=== PATIENT | female | born 1995 | race Caucasian/White ===

== ENCOUNTER 2024-03-18 01:21 | Observation (INO) ==
--- NOTE | 2024-03-18 01:35 | Emergency Department Note ---
Impression & Plan Sepsis, Left lower lobe pneumonia, Leukocytosis, Hypomagnesemia, Acute hypokalemia, Fever ED Provider Note HISTORY OF PRESENT ILLNESS: Patient is a 28-year-old female presenting with anxiety. Patient reports that this evening she had an episode of vomiting which triggered her to have a panic attack. Reports that she is normally on citalopram and has not missed any doses of this medication. States that sometimes when she vomits it triggers her panic attacks. Her panic attack was not subsiding, so her family called 911. Patient is 2 months . She does feel slightly better on arrival to the emergency department after being administered 0.5 mg of IV Ativan by EMS. Patient denies any chest pain or significant shortness of breath. She does report she had a nonproductive cough for the last 4 days. Denies any fevers. Denies any nausea or vomiting on arrival to the emergency department. Denies any abdominal pain. Patient reports numerous stressors at home, including a and her being deployed. ROS: as above PHYSICAL EXAM: Constitutional: Patient appears in no acute distress. HENT: Head: Normocephalic and atraumatic. Eyes: EOMI, PERRL Mouth/Throat: Mucous membranes moist. Neck: Trachea midline. Neck supple. Cardiovascular: Tachycardic with regular rhythm. No murmurs, rubs or gallops. Intact distal pulses. Pulmonary/Chest: No respiratory distress. Breath sounds clear and equal bilaterally. No wheezes or rales. Abdominal: Abdomen soft, no tenderness, rebound or guarding. Musculoskeletal: No edema, tenderness or deformity noted. Skin: Warm and dry. No rash, erythema, pallor or cyanosis Psychiatric: Appropriate mood and affect for situation. Neurological: Alert and keenly responsive. CN II-XII grossly intact, moving all extremities equally and fully. MDM: - Vitals signs showed tachycardia and fever. 1g IV tylenol ordered - History obtained via patient. History as above. - Chronic conditions affecting care: Anxiety/depression - Differential diagnoses include, but are not limited to: ACS; pulmonary embolism; pneumonia; viral syndrome; panic attack; dehydration; electrolyte abnormality - Order placed for continuous cardiac monitoring. At this time, monitor showed rate of 117 bpm with normal sinus rhythm, per my interpretation. - External medical records reviewed. EMS run sheet from today was reviewed. Patient was tachycardic and route. She is given 0.5 mg of IV Ativan prehospital - EKG interpreted by myself showed normal sinus rhythm. Rate tachycardic at 115 bpm. QT 324. No acute ischemic changes. - Laboratory workup interpreted by myself showed leukocytosis (WBC 12.87) with left shift; normal PT/INR; elevated D dimer; hypokalemia (K 3.2); hypomagnesemia (Mg 1.3); normal troponin; normal lipase; negative hCG; negative salicylate/acetaminophen levels - CXR negative for obvious pneumonia, per my interpretation - Viral respiratory panel negative - VBG negative - Patient did become hypoxic while in the emergency department and was started on 2 L NC. D-dimer elevated. CT PE ordered. - CT PE negative for PE. However, noted to have a left lower lobe pneumonia. - Patient given 2L NS for fluid resuscitation. Patient sepsis fluid volume resuscitation based on ideal body weight is 1636.20 mL. - Blood cultures obtained - Given 1g IV magnesium and 40 mEq IV potassium for electrolyte replacement. - Given IV zosyn for antibiotic coverage. - Discussion was had with case work aide about patient's case and need for admission - Hospitalist, Dr. Rouse, consulted for admission - Patient admitted to [facility] for further evaluation and management. ASSESSMENT AND PLAN: Diagnosis: Sepsis; hypomagnesemia; acute hypokalemia; leukocytosis; left lower lobe pneumonia; fever Plan: admit Past Med/Surg History Problem List (Updated 03/18/24 @ 04:15 by Destiny Whitaker MD) Fever (Acute) Acute hypokalemia (Acute) Hypomagnesemia (Acute) Leukocytosis (Acute) Left lower lobe pneumonia (Acute) Sepsis (Acute) Fear of flying Depression with anxiety Vitamin D deficiency Acne Menorrhagia Medical History Depression with anxiety Fear of flying Family History Mother Irritable bowel syndrome (IBS) Father Allergic rhinitis Other Family history non-contributory Denies family history of Ovarian cancer Prostate cancer Myocardial infarction Breast cancer Colorectal cancer Social History Smoking Status: Never smoker Hx Alcohol Use: No Hx Substance Use: No Preferred Language: Argentine Visual Impairment: No Limitations Hearing Ability: Normal marital status: Current Living Situation: Spouse current occupational status: employed current occupation: chartered accountant [employer] Feels Safe at Home: Yes Childhood Exposure to Second-Hand Smoke: Yes Dental Care, Regularly: Yes Physical Activity Frequency: Daily Seatbelt Use: always Sunscreen Use: Yes Allergies Allergies Allergy/AdvReac Type Severity Reaction Status Date / Time No Known Drug Allergies Allergy Unknown Verified 03/18/24 02:11 Home Meds Home Medications Medication Instructions Recorded Confirmed No Known Home Medications 03/18/24 03/18/24 Results & Data (ED) Vital Signs Vital Signs - 24 hr 03/18/24 01:28 03/18/24 01:35 03/18/24 01:44 Temperature 38.2 C H Temperature Source Oral Pulse Rate 119 H 120 H Pulse Rate [Apical] Pulse Rhythm [Apical] Pulse Strength [Apical] Respiratory Rate 22 Respiratory Effort / Characteristics Respiratory Depth Respiratory Pattern Blood Pressure 138/79 Blood Pressure [Right Arm] Blood Pressure Mean 98 Blood Pressure Mean [Right Arm] Blood Pressure Position [Right Arm] Pulse Oximetry 98 Oxygen Delivery Method Room Air Room Air Oxygen Flow Rate Fraction of Inspired Oxygen Sepsis Recent Fever Within 48 Hours Yes Sepsis New/Unexplained Change in Mental Status No Sepsis Action Taken by Nursing Physician Notified Pulse Oximetry Post Tiitration 03/18/24 01:44 03/18/24 02:06 03/18/24 02:09 Temperature Temperature Source Pulse Rate 120 H Pulse Rate [Apical] Pulse Rhythm [Apical] Pulse Strength [Apical] Respiratory Rate Respiratory Effort / Characteristics Respiratory Depth Respiratory Pattern Blood Pressure Blood Pressure [Right Arm] Blood Pressure Mean Blood Pressure Mean [Right Arm] Blood Pressure Position [Right Arm] Pulse Oximetry 98 86 L Oxygen Delivery Method Room Air Room Air Nasal Cannula Oxygen Flow Rate 2 Fraction of Inspired Oxygen 85 Sepsis Recent Fever Within 48 Hours Sepsis New/Unexplained Change in Mental Status Sepsis Action Taken by Nursing Pulse Oximetry Post Tiitration 97 03/18/24 02:42 03/18/24 04:11 Temperature 39.3 C H 38.4 C H Temperature Source Oral Oral Pulse Rate Pulse Rate [Apical] 115 H 106 H Pulse Rhythm [Apical] Regular Regular Pulse Strength [Apical] Normal Respiratory Rate 20 18 Respiratory Effort / Characteristics Non-Labored Non-Labored Spontaneous Respiratory Depth Normal Respiratory Pattern Regular Blood Pressure Blood Pressure [Right Arm] 138/79 122/74 Blood Pressure Mean Blood Pressure Mean [Right Arm] 98 90 Blood Pressure Position [Right Arm] Lying Pulse Oximetry 99 97 Oxygen Delivery Method Nasal Cannula Room Air Oxygen Flow Rate 2 Fraction of Inspired Oxygen Sepsis Recent Fever Within 48 Hours Sepsis New/Unexplained Change in Mental Status Sepsis Action Taken by Nursing Pulse Oximetry Post Tiitration Laboratory Data 03/18/24 01:35 03/18/24 01:35 Lab Results 03/18/24 03/18/24 03/18/24 Range/Units 01:30 01:35 02:28 WBC 12.87 H (4.8-10.8) K/ul RBC 4.75 (4.20-5.40) M/uL Hgb 13.0 (12.0-16.0) g/dl Hct 38.1 (37.0-47.0) % MCV 80.2 (80.0-100.0) fL MCH 27.4 (25.0-34.0) pg MCHC 34.1 (32.0-36.0) g/dL RDW Std Deviation 39.1 (36.4-46.3) fL RDW Coeff of Vinh 13.4 (11.5-14.5) % Plt Count 275 (130-400) K/uL MPV 9.7 (9.4-12.4) fL Immature Gran % (Auto) 0.4 % Neut % (Auto) 79.7 % Lymph % (Auto) 14.8 % [place] % (Auto) 4.6 % Eos % (Auto) 0.3 % Baso % (Auto) 0.2 % Neut # (Auto) 10.27 H (1.40-6.50) K/uL Lymph # (Auto) 1.90 (1.20-3.40) K/uL [place] # (Auto) 0.59 (0.11-0.59) K/uL Eos # (Auto) 0.04 (0.00-0.50) K/uL Baso # (Auto) 0.02 (0.00-0.20) K/uL Immature Gran # (Auto) 0.05 (0.01-0.20) K/uL PT 11.1 (9.0-12.0) Seconds INR 1.0 (0.9-1.1) D-Dimer 590 H* (0-500) ug/L FEU VBG pH 7.40 (7.36-7.41) VBG pCO2 40 (38-50) mmHg VBG pO2 49 mmHg VBG HCO3 25 mmol/L VBG O2 Saturation 83.2 % VBG Base Excess 0 mEq/L Sodium 137 (136-145) mmol/L Potassium 3.2 L (3.5-5.1) mmol/L Chloride 102 (98-107) mmol/L Carbon Dioxide 25 (21-32) mmol/L Anion Gap 10 (3-11) BUN 10 (6-23) mg/dl Creatinine 0.74 (0.6-1.2) mg/dl Est Cr Clr Drug Dosing 96.0 ml/min Est GFR ( Amer) 126.0 ml/min Est GFR (Non-Af Amer) 108.7 ml/min BUN/Creatinine Ratio 13.5 (10-20) Glucose 107 H (70-99(Fasting)) mg/dl Calcium 9.6 (8.6-10.3) mg/dl Magnesium 1.3 L (1.7-2.4) mg/dl Total Bilirubin 0.7 (0.2-1.0) mg/dl AST 19 (13-39) U/L ALT 21 (7-52) U/L Alkaline Phosphatase 83 (34-104) U/L Troponin I High Sens 3.3 (0-14) pg/ml Total Protein 7.6 (6.0-8.3) gm/dl Albumin 4.6 (3.4-5.0) gm/dl Globulin 3.0 (2.5-4.0) gm/dl Albumin/Globulin Ratio 1.5 (0.9-2) Lipase 43 (11-82) U/L HCG, Qual Negative (Negative) Salicylates < 3.0 L (3.0-30) mg/dl Acetaminophen < 3 L (10-30) ug/ml Adenovirus (PCR) Not Detected (NotDetected) B. pertussis DNA (PCR) Not Detected (NotDetected) B.parapertussis DNA PCR Not Detected (NotDetected) C. pneumoniae DNA (PCR) Not Detected (NotDetected) Coronavirus OC43 (PCR) Not Detected (NotDetected) Coronavirus HKU1 (PCR) Not Detected (NotDetected) Coronavirus 229E (PCR) Not Detected (NotDetected) SARS-CoV-2 (PCR) Not Detected (NotDetected) Coronavirus NL63 (PCR) Not Detected (NotDetected) Human Metapneumovir PCR Not Detected (NotDetected) Influenza Type A (PCR) Not Detected (NotDetected) Influenza Type B (PCR) Not Detected (NotDetected) M. pneumoniae (PCR) Not Detected (NotDetected) Parainfluenza 1 (PCR) Not Detected (NotDetected) Parainfluenza 2 (PCR) Not Detected (NotDetected) Parainfluenza 3 (PCR) Not Detected (NotDetected) Parainfluenza 4 (PCR) Not Detected (NotDetected) RSV (PCR) Not Detected (NotDetected) Entero/Rhino (PCR) Not Detected (NotDetected) Administered Medications Discontinued Medications Acetaminophen (Ofirmev) 1,000 mg in 100 mls @ 400 mls/hr IV NOW STA Stop: 03/18/24 01:57 Last Infusion: 03/18/24 02:44 Dose: Infused Documented By: Admin: 03/18/24 01:55 Dose: 400 mls/hr Documented By: GAIL Magnesium Sulfate/Dextrose (Magnesium Sulfate / D5w) 1 gm in 100 mls @ 100 mls/hr IV NOW STA Stop: 03/18/24 03:09 Last Admin: 03/18/24 02:48 Dose: 100 mls/hr Documented By: GAIL Sodium Chloride (Nss) 1,000 mls @ 999 mls/hr IV .Q1H1M ONE Stop: 03/18/24 03:11 Last Infusion: 03/18/24 03:48 Dose: Infused Documented By: Admin: 03/18/24 02:48 Dose: 999 mls/hr Documented By: GAIL Ioversol (Optiray 320 125ml) 125 ml IV ONCE ONE Stop: 03/18/24 03:29 Last Admin: 03/18/24 03:28 Dose: 117 ml Documented By: CON Ketorolac Tromethamine (Ketorolac 30 Mg/Ml Vial) 30 mg IV NOW ONE Stop: 03/18/24 02:46 Last Admin: 03/18/24 02:53 Dose: 30 mg Documented By: GAIL Imaging Data Radiologist's Impression: Chest CTA 03/18/24 02:19 Exam(s): CTA CHEST IV Amt: 117 ML OPTIRAY 320 EXAM: CT Angiography Chest With Intravenous Contrast CLINICAL HISTORY: PE. TECHNIQUE: Axial computed tomographic angiography images of the chest with intravenous contrast. MIPS images were created and reviewed. CTDI is 11 mGy and DLP is 331 mGy-cm. Automated exposure control was utilized for the study. A dose lowering technique was utilized adhering to the principles of ALARA. MIP reconstructed images were created and reviewed. COMPARISON: No relevant prior studies available. FINDINGS: Pulmonary arteries: Unremarkable. No pulmonary embolus. Aorta: No acute findings. No thoracic aortic aneurysm. Lungs: Left lower lobe pneumonia. No mass. Pleural space: Unremarkable. No significant effusion. No pneumothorax. Heart: Unremarkable. No cardiomegaly. No significant pericardial effusion. No evidence of RV dysfunction. Bones/joints: There are degenerative changes of the spine. No acute fracture. No dislocation. Soft tissues: Unremarkable. Lymph nodes: Unremarkable. No enlarged lymph nodes. IMPRESSION: 1. No pulmonary embolus. 2. Left lower lobe pneumonia. Electronically signed by: Tigist Wesley MD 03/18/24 03:37 AM Discharge Plan Visit Data Chief Complaint: Anxiety Stated Complaint: PANIC ATTACK ED Provider: Destiny Whitaker Discharge Problem: Sepsis, Left lower lobe pneumonia, Leukocytosis, Hypomagnesemia, Acute hypokalemia, Fever Forms Stand Alone Forms: [employer] [facility] [employer], Suicide Prevention Resources Prescriptions Prescriptions: No Action No Known Home Medications Referrals Referrals: MOVED, AWAY [Other]
[2024-03-18 01:49] LABS: Basophils # (auto) 0.02 K/uL (0.00-0.20); Basophils % (auto) 0.2 %; Eosinophils # (auto) 0.04 K/uL (0.00-0.50); Eosinophils % (auto) 0.3 %; Hematocrit (blood only) 38.1 % (37.0-47.0); Immature Granulocytes # (auto) 0.05 K/uL (0.01-0.20); Immature Granulocytes % (auto) 0.4 %; Lymphocytes % (auto) 14.8 %; Mean Corpuscular Hemoglobin 27.4 pg (25.0-34.0); Mean Corpuscular Hgb Conc 34.1 g/dL (32.0-36.0); Mean Corpuscular Volume 80.2 fL (80.0-100.0); Mean Platelet Volume 9.7 fL (9.4-12.4); Monocytes # (auto) 0.59 K/uL (0.11-0.59); Monocytes % (auto) 4.6 %; Neutrophils # (auto) 10.27 K/uL (1.40-6.50); Neutrophils % (auto) 79.7 %; Platelet Count 275 K/uL (130-400); RDW Coefficient of Variation 13.4 % (11.5-14.5); RDW Standard Deviation 39.1 fL (36.4-46.3); Red Blood Count 4.75 M/uL (4.20-5.40); White Blood Count 12.87 K/ul (4.8-10.8)
[2024-03-18] MEDS: ACETAMINOPHEN 1,000 MG/100 ML VIAL IV STA (01:55)
[2024-03-18 02:04] LABS: Albumin Level 4.6 gm/dl (3.4-5.0); Bilirubin,Total 0.7 mg/dl (0.2-1.0); Calcium 9.6 mg/dl (8.6-10.3); Magnesium 1.3 mg/dl (1.7-2.4); Potassium 3.2 mmol/L (3.5-5.1); Prothrombin Time 11.1 Seconds (9.0-12.0)
[2024-03-18 02:10] LABS: Albumin Globulin Ratio 1.5 (0.9-2); BUN Creatinine Ratio 13.5 (10-20); Est GFR (Non-African American) 108.7 ml/min; Total Protein 7.6 gm/dl (6.0-8.3)
[2024-03-18 02:15] LABS: Troponin I High Sensitivity 3.3 pg/ml (0-14)
[2024-03-18 02:19] LABS: Acetaminophen < 3 ug/ml (10-30); D Dimer 590 ug/L FEU (0-500); Salicylate < 3.0 mg/dl (3.0-30)
[2024-03-18 02:22] LABS: Pregnancy Test, Serum Negative (Negative)
[2024-03-18 02:38] LABS: Base Excess VBG 0 mEq/L; HCO3 VBG 25 mmol/L; Oxygen Saturation VBG 83.2 %; PCO2 VBG 40 mmHg (38-50); PO2 VBG 49 mmHg
[2024-03-18 02:41] LABS: Adenovirus PCR Not Detected (NotDetected); Bordetella parapertussis PCR Not Detected (NotDetected); Bordetella pertussis PCR Not Detected (NotDetected); Chlamydia pneumoniae PCR Not Detected (NotDetected); Coronavirus 229E PCR Not Detected (NotDetected); Coronavirus CoV-2 (COVID19)PCR Not Detected (NotDetected); Coronavirus HKU1 PCR Not Detected (NotDetected); Coronavirus NL63 PCR Not Detected (NotDetected); Coronavirus OC43PCR Not Detected (NotDetected); Human Metapneumovirus PCR Not Detected (NotDetected); Influenza A PCR Not Detected (NotDetected); Influenza B PCR Not Detected (NotDetected); Mycoplasma pneumoniae PCR Not Detected (NotDetected); Parainfluenza Virus 1 PCR Not Detected (NotDetected); Parainfluenza Virus 2 PCR Not Detected (NotDetected); Parainfluenza Virus 3 PCR Not Detected (NotDetected); Parainfluenza Virus 4 PCR Not Detected (NotDetected); Respiratory Syncytial VirusPCR Not Detected (NotDetected); Rhinovirus/Enterovirus PCR Not Detected (NotDetected)
[2024-03-18] MEDS: SODIUM CHLORIDE 0.9% 1,000 ML IV ONE ×2 (02:48→04:45)
[2024-03-18] MEDS: MAGNESIUM SULFATE / D5W 1 GM/100 ML BAG IV STA (02:48)
[2024-03-18] MEDS: KETOROLAC 30 MG/ML VIAL IV ONE (02:53)
[2024-03-18] MEDS: OPTIRAY 320 125ml IV ONE (03:28)
--- NOTE | 2024-03-18 03:38 | CT Scan Report ---
Exam(s): CTA CHEST IV Amt: 117 ML OPTIRAY 320 EXAM: CT Angiography Chest With Intravenous Contrast CLINICAL HISTORY: PE. TECHNIQUE: Axial computed tomographic angiography images of the chest with intravenous contrast. MIPS images were created and reviewed. CTDI is 11 mGy and DLP is 331 mGy-cm. Automated exposure control was utilized for the study. A dose lowering technique was utilized adhering to the principles of ALARA. MIP reconstructed images were created and reviewed. COMPARISON: No relevant prior studies available. FINDINGS: Pulmonary arteries: Unremarkable. No pulmonary embolus. Aorta: No acute findings. No thoracic aortic aneurysm. Lungs: Left lower lobe pneumonia. No mass. Pleural space: Unremarkable. No significant effusion. No pneumothorax. Heart: Unremarkable. No cardiomegaly. No significant pericardial effusion. No evidence of RV dysfunction. Bones/joints: There are degenerative changes of the spine. No acute fracture. No dislocation. Soft tissues: Unremarkable. Lymph nodes: Unremarkable. No enlarged lymph nodes. IMPRESSION: 1. No pulmonary embolus. 2. Left lower lobe pneumonia. Electronically signed by: Tigist Wesley MD 03/18/24 03:37 AM
--- NOTE | 2024-03-18 04:32 | History & Physical Report ---
Date of Service March 18, 2024 Assessment & Plan (1) Left lower lobe pneumonia: Plan: 28yo female presenting with LLL Pneumonia. Patient meets sepsis criteria - present on admission - secondary to LLL Pneumonia. SIRS 3/4 with HR of 106, Tm=38.4, WBC=12.87. -Admit to medical -Follow cultures sent from ER - blood and sputum -Ceftriaxone 1gm IV daily -Doxycycline 100mg IV BID -Tylenol PRN -Toradol PRN -Zofran PRN -Tessalon 100mg po TID -Incentive spirometry -Continue IVF - LR at 125mL/hr (2) Acute hypokalemia: Plan: Repletion with 40mEq PO x 1 dose Repeat chemistry in AM (3) Hypomagnesemia: Plan: Replete with IV magnesium Repeat level in AM Plan Chronic Medical Conditions Anxiety - chronic -Continue Celexa at home dose 20mg po BID History of Present Illness Chief Complaint: Pneumonia Primary Care Provider: NO PCP Patito Sheehan is a 28yo female with history of depression/anxiety presenting with pneumonia. Patient reports having some cough and congestion for several days last week- she has been taking Robitussin and OTC medications. She was seen at [facility] on 03/14/24 and was told that she has a bad cold. Her symptoms have been persistent. This evening she had a panic attack with racing heart and shaking which prompted her to come to the ER. Workup as below revealed LLL PNA. Patient febrile in the ER. She has had ongoing cough with phlegm as well as chills and vomiting. No chest pain, SOB. No additional complaints. Of note, patient is 2 months post- from an uncomplicated full-term . She has a two year old child as well as the new two month old baby. Her is in the and is currently on a 6 month deployment. Patient lives in [place] but is currently home living with family while her is deployed. In the ER she is febrile, tachycardic. Adequate oxygenation on room air ER Course: Tylenol Mg x 1gm NSS x 2L Zosyn 4.5gm KCl 10mEq Allergies Allergy/AdvReac Type Severity Reaction Status Date / Time No Known Drug Allergies Allergy Unknown Verified 03/18/24 02:11 Home Medications Medication Instructions Recorded Confirmed Type citalopram 20 mg tablet 20 mg PO BID 03/18/24 03/18/24 History Past Med/Surg History Problem List (Updated 03/18/24 @ 05:44 by Liza Rouse DO) Fever (Acute) Acute hypokalemia (Acute) Hypomagnesemia (Acute) Leukocytosis (Acute) Left lower lobe pneumonia (Acute) Sepsis (Acute) Fear of flying Depression with anxiety Vitamin D deficiency Acne Menorrhagia Medical History (Updated 03/18/24 @ 05:44 by Liza Rouse DO) Anxiety Family History Mother Irritable bowel syndrome (IBS) Father Allergic rhinitis Other Family history non-contributory Denies family history of Ovarian cancer Prostate cancer Myocardial infarction Breast cancer Colorectal cancer Social History Smoking Status: Never smoker Hx Alcohol Use: No Hx Substance Use: No Preferred Language: Bolivian Visual Impairment: No Limitations Hearing Ability: Normal marital status: Current Living Situation: Spouse current occupational status: employed current occupation: department director [employer] Feels Safe at Home: Yes Childhood Exposure to Second-Hand Smoke: Yes Dental Care, Regularly: Yes Physical Activity Frequency: Daily Seatbelt Use: always Sunscreen Use: Yes Review of Systems Review of Systems: All systems reviewed & are unremarkable except as noted in HPI & below Physical Exam Physical Exam: General: patient resting comfortably, NAD, non-toxic, AA&O x 4, warm to touch, anxious in appearance Skin: warm, dry, intact, no rashes or lesions HEENT: NC/AT, PERRL, EOMI, anicteric sclera, conjunctiva without injection, external ear normal to inspection and nontender, nares patent, moist mucus membranes, dentition intact, no oropharyngeal lesions, neck supple, trachea midline, no LAD, no thyromegaly, no JVD Heart: +S1/S2, regular, tachycardic, no m/r/g Lungs: equal air entry bilaterally, crackles in left base, no rhonchi/wheezes Abd: +BS, soft, NT/ND, no masses/organomegaly/ascites Ext: warm, 2+ pulses in UE/LE bilaterally, no clubbing/cyanosis or edema Neuro: nonfocal, patient AA&O x 4, speech intact, no facial droop, moving all extremities on command with equal strength 5/5 Results & Data Results & Data Vital Signs (Past 12 Hours) Vital Signs Temp Pulse Pulse Resp BP BP Pulse Ox 03/18/24 04:11 38.4 C H 106 H 18 122/74 97 03/18/24 02:42 39.3 C H 115 H 20 138/79 99 03/18/24 02:09 03/18/24 02:06 86 L 03/18/24 01:44 120 H 98 03/18/24 01:44 03/18/24 01:35 38.2 C H 120 H 22 138/79 98 03/18/24 01:28 119 H O2 Del Method O2 Flow Rate FiO2 03/18/24 04:11 Room Air 03/18/24 02:42 Nasal Cannula 2 03/18/24 02:09 Nasal Cannula 2 85 03/18/24 02:06 Room Air 03/18/24 01:44 Room Air 03/18/24 01:44 Room Air 03/18/24 01:35 Room Air 03/18/24 01:28 Laboratory Results Laboratory Results WBC 12.87 K/ul (4.8-10.8) H 03/18/24 01:35 RBC 4.75 M/uL (4.20-5.40) 03/18/24 01:35 Hgb 13.0 g/dl (12.0-16.0) 03/18/24 01:35 Hct 38.1 % (37.0-47.0) 03/18/24 01:35 MCV 80.2 fL (80.0-100.0) 03/18/24 01:35 MCH 27.4 pg (25.0-34.0) 03/18/24 01:35 MCHC 34.1 g/dL (32.0-36.0) 03/18/24 01:35 RDW Std Deviation 39.1 fL (36.4-46.3) 03/18/24 01:35 RDW Coeff of Vinh 13.4 % (11.5-14.5) 03/18/24 01:35 Plt Count 275 K/uL (130-400) 03/18/24 01:35 MPV 9.7 fL (9.4-12.4) 03/18/24 01:35 Immature Gran % (Auto) 0.4 % 03/18/24 01:35 Neut % (Auto) 79.7 % 03/18/24 01:35 Lymph % (Auto) 14.8 % 03/18/24 01:35 [place] % (Auto) 4.6 % 03/18/24 01:35 Eos % (Auto) 0.3 % 03/18/24 01:35 Baso % (Auto) 0.2 % 03/18/24 01:35 Neut # (Auto) 10.27 K/uL (1.40-6.50) H 03/18/24 01:35 Lymph # (Auto) 1.90 K/uL (1.20-3.40) 03/18/24 01:35 [place] # (Auto) 0.59 K/uL (0.11-0.59) 03/18/24 01:35 Eos # (Auto) 0.04 K/uL (0.00-0.50) 03/18/24 01:35 Baso # (Auto) 0.02 K/uL (0.00-0.20) 03/18/24 01:35 Immature Gran # (Auto) 0.05 K/uL (0.01-0.20) 03/18/24 01:35 PT 11.1 Seconds (9.0-12.0) 03/18/24 01:35 INR 1.0 (0.9-1.1) 03/18/24 01:35 D-Dimer 590 ug/L FEU (0-500) H* 03/18/24 01:35 VBG pH 7.40 (7.36-7.41) 03/18/24 02:28 VBG pCO2 40 mmHg (38-50) 03/18/24 02:28 VBG pO2 49 mmHg 03/18/24 02:28 VBG HCO3 25 mmol/L 03/18/24 02:28 VBG O2 Saturation 83.2 % 03/18/24 02:28 VBG Base Excess 0 mEq/L 03/18/24 02:28 Sodium 137 mmol/L (136-145) 03/18/24 01:35 Potassium 3.2 mmol/L (3.5-5.1) L 03/18/24 01:35 Chloride 102 mmol/L (98-107) 03/18/24 01:35 Carbon Dioxide 25 mmol/L (21-32) 03/18/24 01:35 Anion Gap 10 (3-11) 03/18/24 01:35 BUN 10 mg/dl (6-23) 03/18/24 01:35 Creatinine 0.74 mg/dl (0.6-1.2) 03/18/24 01:35 Est Cr Clr Drug Dosing 96.0 ml/min 03/18/24 01:35 Est GFR ( Amer) 126.0 ml/min 03/18/24 01:35 Est GFR (Non-Af Amer) 108.7 ml/min 03/18/24 01:35 BUN/Creatinine Ratio 13.5 (10-20) 03/18/24 01:35 Glucose 107 mg/dl (70-99(Fasting)) H 03/18/24 01:35 Lactate 0.9 mmol/L (0.4-2.0) 03/18/24 04:37 Calcium 9.6 mg/dl (8.6-10.3) 03/18/24 01:35 Magnesium 1.3 mg/dl (1.7-2.4) L 03/18/24 01:35 Total Bilirubin 0.7 mg/dl (0.2-1.0) 03/18/24 01:35 AST 19 U/L (13-39) 03/18/24 01:35 ALT 21 U/L (7-52) 03/18/24 01:35 Alkaline Phosphatase 83 U/L (34-104) 03/18/24 01:35 Troponin I High Sens 3.3 pg/ml (0-14) 03/18/24 01:35 Total Protein 7.6 gm/dl (6.0-8.3) 03/18/24 01:35 Albumin 4.6 gm/dl (3.4-5.0) 03/18/24 01:35 Globulin 3.0 gm/dl (2.5-4.0) 03/18/24 01:35 Albumin/Globulin Ratio 1.5 (0.9-2) 03/18/24 01:35 Lipase 43 U/L (11-82) 03/18/24 01:35 Procalcitonin 0.22 ng/ml (0-0.5) 03/18/24 04:37 HCG, Qual Negative (Negative) 03/18/24 01:35 Urine Color Yellow 03/18/24 04:50 Urine Appearance Clear (Clear) 03/18/24 04:50 Urine pH 7.5 (4.5-7.5) 03/18/24 04:50 Ur Specific [place] 1.025 (1.000-1.030) 03/18/24 04:50 Urine Protein Negative (Negative) 03/18/24 04:50 Urine Glucose (UA) Negative (Negative) 03/18/24 04:50 Urine Ketones 1+ (Negative) H 03/18/24 04:50 Urine Blood Negative (Negative) 03/18/24 04:50 Urine Nitrite Negative (Negative) 03/18/24 04:50 Urine Bilirubin Negative (Negative) 03/18/24 04:50 Urine Urobilinogen Negative (Negative) 03/18/24 04:50 Ur Leukocyte Esterase Negative (Negative) 03/18/24 04:50 Salicylates < 3.0 mg/dl (3.0-30) L 03/18/24 01:35 Acetaminophen < 3 ug/ml (10-30) L 03/18/24 01:35 Adenovirus (PCR) Not Detected (NotDetected) 03/18/24 01:30 B. pertussis DNA (PCR) Not Detected (NotDetected) 03/18/24 01:30 B.parapertussis DNA PCR Not Detected (NotDetected) 03/18/24 01:30 C. pneumoniae DNA (PCR) Not Detected (NotDetected) 03/18/24 01:30 Coronavirus OC43 (PCR) Not Detected (NotDetected) 03/18/24 01:30 Coronavirus HKU1 (PCR) Not Detected (NotDetected) 03/18/24 01:30 Coronavirus 229E (PCR) Not Detected (NotDetected) 03/18/24 01:30 SARS-CoV-2 (PCR) Not Detected (NotDetected) 03/18/24 01:30 Coronavirus NL63 (PCR) Not Detected (NotDetected) 03/18/24 01:30 Human Metapneumovir PCR Not Detected (NotDetected) 03/18/24 01:30 Influenza Type A (PCR) Not Detected (NotDetected) 03/18/24 01:30 Influenza Type B (PCR) Not Detected (NotDetected) 03/18/24 01:30 M. pneumoniae (PCR) Not Detected (NotDetected) 03/18/24 01:30 Parainfluenza 1 (PCR) Not Detected (NotDetected) 03/18/24 01:30 Parainfluenza 2 (PCR) Not Detected (NotDetected) 03/18/24 01:30 Parainfluenza 3 (PCR) Not Detected (NotDetected) 03/18/24 01:30 Parainfluenza 4 (PCR) Not Detected (NotDetected) 03/18/24 01:30 RSV (PCR) Not Detected (NotDetected) 03/18/24 01:30 Entero/Rhino (PCR) Not Detected (NotDetected) 03/18/24 01:30 Impressions Chest CTA 03/18/24 02:19 Exam(s): CTA CHEST IV Amt: 117 ML OPTIRAY 320 EXAM: CT Angiography Chest With Intravenous Contrast CLINICAL HISTORY: PE. TECHNIQUE: Axial computed tomographic angiography images of the chest with intravenous contrast. MIPS images were created and reviewed. CTDI is 11 mGy and DLP is 331 mGy-cm. Automated exposure control was utilized for the study. A dose lowering technique was utilized adhering to the principles of ALARA. MIP reconstructed images were created and reviewed. COMPARISON: No relevant prior studies available. FINDINGS: Pulmonary arteries: Unremarkable. No pulmonary embolus. Aorta: No acute findings. No thoracic aortic aneurysm. Lungs: Left lower lobe pneumonia. No mass. Pleural space: Unremarkable. No significant effusion. No pneumothorax. Heart: Unremarkable. No cardiomegaly. No significant pericardial effusion. No evidence of RV dysfunction. Bones/joints: There are degenerative changes of the spine. No acute fracture. No dislocation. Soft tissues: Unremarkable. Lymph nodes: Unremarkable. No enlarged lymph nodes. IMPRESSION: 1. No pulmonary embolus. 2. Left lower lobe pneumonia. Electronically signed by: Tigist Wesley MD 03/18/24 03:37 AM ECG Additional Comments: EKG reveals ST at 115bpm Code Status & VTE Plan VTE Prophylaxis Plan VTE Prophylaxis will be ordered: Yes PG Care Time/CCT Total # of Minutes Spent Total Time Spent with Patient: Total time spent is greater than 50% in coordination of care (as documented) at patient's floor/unit and/or counseling patient: Coding Level of Care Code 01233 INT INP/OBS CARE MIN Diagnoses Left lower lobe pneumonia J18.9 Acute hypokalemia E87.6 Hypomagnesemia E83.42
[2024-03-18] MEDS: POTASSIUM CHLORIDE / WTR 10 MEQ/100 ML PLCT IV SCH (04:44)
[2024-03-18] MEDS: PIPERACILLIN/TAZOBACTAM 4.5 GM/100 ML BAG IV ONE (04:44)
[2024-03-18 05:16] LABS: Appearance Urine Clear (Clear); Bilirubin Urine Negative (Negative); Blood Urine Negative (Negative); Color Urine Yellow; Glucose Urine UA Negative (Negative); Ketones Urine 1+ (Negative); Leukocyte Esterase Urine Negative (Negative); Nitrite Urine Negative (Negative); Protein Urine Negative (Negative); Specific Gravity Urine 1.025 (1.000-1.030); Urobilinogen Urine Negative (Negative); pH Urine 7.5 (4.5-7.5)
[2024-03-18] MEDS ORDERED: KETOROLAC TROMETHAMINE 15 MG/ML VIAL IV PRN (05:39)
[2024-03-18] MEDS ORDERED: ONDANSETRON INJ 2 MG/ML 2 ML VIAL IV PRN (05:39)
[2024-03-18 05:48] LABS: Amphetamines+Metham, Urine Neg (Neg); Barbiturates, Urine Neg (Neg); Benzodiazepine, Urine Neg (Neg); Cocaine, Urine Neg (Neg); Fentanyl, Urine Neg (Neg); MDMA (Ecstacy), Urine Neg (Neg); Marijuana, Urine Neg (Neg); Methadone, Urine Neg (Neg); Opiate, Urine Neg (Neg); Phencyclidine, Urine Neg (Neg)
[2024-03-18] MEDS: LACTATED RINGER'S 1,000 ML IV SCH (06:02)
[2024-03-18] MEDS: MAGNESIUM SULFATE / D5W 1 GM/100 ML BAG IV SCH (06:43)
--- NOTE | 2024-03-18 07:53 | XRay Report ---
XR chest 1V portable CLINICAL HISTORY: Chest pain, nonspecific TECHNIQUE: Single frontal radiograph of the chest was obtained. Comparison: Comparison is made to chest radiograph 10/11/2017 FINDINGS: No lines and tubes are seen. The cardiomediastinal silhouette is normal. The lungs are clear. No evid ence of pleural effusion or pneumothorax. IMPRESSION: No acute chest disease. ACT 112: Negative or not required by law. Electronically signed by: Stephen Dhillon M.D. 03/18/2024 7:51 AM
[2024-03-18] MEDS: DOXYCYCLINE HYCLATE 100 MG in DEXTROSE 5% MINI-B 100 ML IV SCH (08:39)
[2024-03-18] MEDS: cefTRIAXone SODIUM 1,000 MG/50 ML BAG IV SCH (08:43)
[2024-03-18] MEDS: BENZONATATE 100 MG CAPSULE PO SCH (08:47)
[2024-03-18] MEDS: CITALOPRAM 20 MG TAB PO SCH (08:48)
[2024-03-18] MEDS: ENOXAPARIN INJ 40 MG/0.4 ML SYR SQ SCH (08:49)
[2024-03-18] MEDS: POTASSIUM CHLORIDE CRTAB 20 MEQ TABCR PO STA (09:05)
[2024-03-18] MEDS: ACETAMINOPHEN 500 MG TAB PO PRN (10:48)
--- NOTE | 2024-03-18 12:08 | Hospitalist Progress Note ---
Date of Service March 18, 2024 Assessment & Plan (1) Left lower lobe pneumonia: Plan: community-acquired cont rocephin/doxycycline cont supportive care; cont pulm toilet; add mucinex/bronchodilators send sputum cx if able to produce sputum (2) Acute hypokalemia: Plan: 2nd to poor PO intake pre-admission & vomiting s/p replacement repeat level today improved/now normal (3) Hypomagnesemia: Plan: 2nd to poor po intake/vomiting replaced now resolved (4) Sepsis: Plan: 2nd #1 stable blood cx's neg to date (5) Depression with anxiety: Plan: cont celexa Plan DVT proph - lovenox daily Admission and Anticipated Discharge Date Admission Date: March 18, 2024 Subjective patient c/o ongoing cough with minimal sputum, some mild dyspnea on exertion, ear fullness/discomfort b/l, poor appetite no h/o recurrent infections no tobacco use no asthma or chronic lung disease history Physical Exam Physical Exam: gen - coughing, but NAD, nontoxic neck - no JVD HENT - ears - TMs retracted b/l but normal landmarks mouth - MM dry heart - RRR, s1 s2, no murmur lungs - decreased BS both bases but much worse on left, minimal rales left base, no obvious wheeze abd - soft NT ND BS+; no HSM ext - no edema, pulses 2+ b/l Results & Data Results & Data Vital Signs (Past 12 Hours) Vital Signs Temp Pulse Pulse Pulse Resp BP BP 03/18/24 07:31 03/18/24 07:18 36.8 C 98 H 16 103/65 03/18/24 06:13 03/18/24 05:40 37.0 C 101 H 18 118/77 03/18/24 05:17 94 H 03/18/24 05:08 97 H 16 124/74 03/18/24 04:11 38.4 C H 106 H 18 122/74 03/18/24 02:42 39.3 C H 115 H 20 138/79 03/18/24 02:09 03/18/24 02:06 03/18/24 01:44 120 H 03/18/24 01:44 03/18/24 01:35 38.2 C H 120 H 22 138/79 03/18/24 01:28 119 H Pulse Ox O2 Del Method O2 Flow Rate FiO2 03/18/24 07:31 Room Air 03/18/24 07:18 97 Room Air 03/18/24 06:13 Room Air 03/18/24 05:40 98 Room Air 03/18/24 05:17 03/18/24 05:08 95 Room Air 03/18/24 04:11 97 Room Air 03/18/24 02:42 99 Nasal Cannula 2 03/18/24 02:09 Nasal Cannula 2 85 03/18/24 02:06 86 L Room Air 03/18/24 01:44 98 Room Air 03/18/24 01:44 Room Air 03/18/24 01:35 98 Room Air 03/18/24 01:28 Laboratory Results Laboratory Results - last 24 hr 03/18/24 03/18/24 03/18/24 01:30 01:35 02:28 WBC 12.87 H RBC 4.75 Hgb 13.0 Hct 38.1 MCV 80.2 MCH 27.4 MCHC 34.1 RDW Std Deviation 39.1 RDW Coeff of Vinh 13.4 Plt Count 275 MPV 9.7 Immature Gran % (Auto) 0.4 Neut % (Auto) 79.7 Lymph % (Auto) 14.8 [place] % (Auto) 4.6 Eos % (Auto) 0.3 Baso % (Auto) 0.2 Neut # (Auto) 10.27 H Lymph # (Auto) 1.90 [place] # (Auto) 0.59 Eos # (Auto) 0.04 Baso # (Auto) 0.02 Immature Gran # (Auto) 0.05 PT 11.1 INR 1.0 D-Dimer 590 H* VBG pH 7.40 VBG pCO2 40 VBG pO2 49 VBG HCO3 25 VBG O2 Saturation 83.2 VBG Base Excess 0 Sodium 137 Potassium 3.2 L Chloride 102 Carbon Dioxide 25 Anion Gap 10 BUN 10 Creatinine 0.74 Est Cr Clr Drug Dosing 96.0 Est GFR ( Amer) 126.0 Est GFR (Non-Af Amer) 108.7 BUN/Creatinine Ratio 13.5 Glucose 107 H Lactate Calcium 9.6 Magnesium 1.3 L Total Bilirubin 0.7 AST 19 ALT 21 Alkaline Phosphatase 83 Troponin I High Sens 3.3 Total Protein 7.6 Albumin 4.6 Globulin 3.0 Albumin/Globulin Ratio 1.5 Lipase 43 Procalcitonin HCG, Qual Negative Urine Color Urine Appearance Urine pH Ur Specific [place] Urine Protein Urine Glucose (UA) Urine Ketones Urine Blood Urine Nitrite Urine Bilirubin Urine Urobilinogen Ur Leukocyte Esterase Nasal Screen MRSA (PCR) Salicylates < 3.0 L Urine Opiates Screen Ur Methadone, Qual Urine Fentanyl Screen Acetaminophen < 3 L Urine Barbiturates Ur Phencyclidine (PCP) U Amphetamin/Meth Scrn MDMA (Ecstasy) Screen U Benzodiazepines Scrn Ur Cocaine Metabolite U Marijuana (THC) Screen Adenovirus (PCR) Not Detected B. pertussis DNA (PCR) Not Detected B.parapertussis DNA PCR Not Detected C. pneumoniae DNA (PCR) Not Detected Coronavirus OC43 (PCR) Not Detected Coronavirus HKU1 (PCR) Not Detected Coronavirus 229E (PCR) Not Detected SARS-CoV-2 (PCR) Not Detected Coronavirus NL63 (PCR) Not Detected Human Metapneumovir PCR Not Detected Influenza Type A (PCR) Not Detected Influenza Type B (PCR) Not Detected M. pneumoniae (PCR) Not Detected Parainfluenza 1 (PCR) Not Detected Parainfluenza 2 (PCR) Not Detected Parainfluenza 3 (PCR) Not Detected Parainfluenza 4 (PCR) Not Detected RSV (PCR) Not Detected Entero/Rhino (PCR) Not Detected 03/18/24 03/18/24 03/18/24 04:20 04:37 04:50 WBC RBC Hgb Hct MCV MCH MCHC RDW Std Deviation RDW Coeff of Vinh Plt Count MPV Immature Gran % (Auto) Neut % (Auto) Lymph % (Auto) [place] % (Auto) Eos % (Auto) Baso % (Auto) Neut # (Auto) Lymph # (Auto) [place] # (Auto) Eos # (Auto) Baso # (Auto) Immature Gran # (Auto) PT INR D-Dimer VBG pH VBG pCO2 VBG pO2 VBG HCO3 VBG O2 Saturation VBG Base Excess Sodium Potassium Chloride Carbon Dioxide Anion Gap BUN Creatinine Est Cr Clr Drug Dosing Est GFR ( Amer) Est GFR (Non-Af Amer) BUN/Creatinine Ratio Glucose Lactate 0.9 Calcium Magnesium Total Bilirubin AST ALT Alkaline Phosphatase Troponin I High Sens Total Protein Albumin Globulin Albumin/Globulin Ratio Lipase Procalcitonin 0.22 HCG, Qual Urine Color Yellow Urine Appearance Clear Urine pH 7.5 Ur Specific [place] 1.025 Urine Protein Negative Urine Glucose (UA) Negative Urine Ketones 1+ H Urine Blood Negative Urine Nitrite Negative Urine Bilirubin Negative Urine Urobilinogen Negative Ur Leukocyte Esterase Negative Nasal Screen MRSA (PCR) Negative Salicylates Urine Opiates Screen Neg Ur Methadone, Qual Neg Urine Fentanyl Screen Neg Acetaminophen Urine Barbiturates Neg Ur Phencyclidine (PCP) Neg U Amphetamin/Meth Scrn Neg MDMA (Ecstasy) Screen Neg U Benzodiazepines Scrn Neg Ur Cocaine Metabolite Neg U Marijuana (THC) Screen Neg Adenovirus (PCR) B. pertussis DNA (PCR) B.parapertussis DNA PCR C. pneumoniae DNA (PCR) Coronavirus OC43 (PCR) Coronavirus HKU1 (PCR) Coronavirus 229E (PCR) SARS-CoV-2 (PCR) Coronavirus NL63 (PCR) Human Metapneumovir PCR Influenza Type A (PCR) Influenza Type B (PCR) M. pneumoniae (PCR) Parainfluenza 1 (PCR) Parainfluenza 2 (PCR) Parainfluenza 3 (PCR) Parainfluenza 4 (PCR) RSV (PCR) Entero/Rhino (PCR) 03/18/24 12:57 WBC RBC Hgb Hct MCV MCH MCHC RDW Std Deviation RDW Coeff of Vinh Plt Count MPV Immature Gran % (Auto) Neut % (Auto) Lymph % (Auto) [place] % (Auto) Eos % (Auto) Baso % (Auto) Neut # (Auto) Lymph # (Auto) [place] # (Auto) Eos # (Auto) Baso # (Auto) Immature Gran # (Auto) PT INR D-Dimer VBG pH VBG pCO2 VBG pO2 VBG HCO3 VBG O2 Saturation VBG Base Excess Sodium Potassium 3.7 Chloride Carbon Dioxide Anion Gap BUN Creatinine Est Cr Clr Drug Dosing Est GFR ( Amer) Est GFR (Non-Af Amer) BUN/Creatinine Ratio Glucose Lactate Calcium Magnesium 3.0 H Total Bilirubin AST ALT Alkaline Phosphatase Troponin I High Sens Total Protein Albumin Globulin Albumin/Globulin Ratio Lipase Procalcitonin HCG, Qual Urine Color Urine Appearance Urine pH Ur Specific [place] Urine Protein Urine Glucose (UA) Urine Ketones Urine Blood Urine Nitrite Urine Bilirubin Urine Urobilinogen Ur Leukocyte Esterase Nasal Screen MRSA (PCR) Salicylates Urine Opiates Screen Ur Methadone, Qual Urine Fentanyl Screen Acetaminophen Urine Barbiturates Ur Phencyclidine (PCP) U Amphetamin/Meth Scrn MDMA (Ecstasy) Screen U Benzodiazepines Scrn Ur Cocaine Metabolite U Marijuana (THC) Screen Adenovirus (PCR) B. pertussis DNA (PCR) B.parapertussis DNA PCR C. pneumoniae DNA (PCR) Coronavirus OC43 (PCR) Coronavirus HKU1 (PCR) Coronavirus 229E (PCR) SARS-CoV-2 (PCR) Coronavirus NL63 (PCR) Human Metapneumovir PCR Influenza Type A (PCR) Influenza Type B (PCR) M. pneumoniae (PCR) Parainfluenza 1 (PCR) Parainfluenza 2 (PCR) Parainfluenza 3 (PCR) Parainfluenza 4 (PCR) RSV (PCR) Entero/Rhino (PCR) PG Care Time/CCT Total # of Minutes Spent Total Time Spent with Patient: Total time spent is greater than 50% in coordination of care (as documented) at patient's floor/unit and/or counseling patient: Coding Level of Care Code None Diagnoses Left lower lobe pneumonia J18.9 Acute hypokalemia E87.6 Hypomagnesemia E83.42 Sepsis A41.9 Depression with anxiety F41.8
[2024-03-18] MEDS: guaiFENesin 600 MG TABCR PO SCH (12:46)
[2024-03-18] MEDS: LEVALBUTEROL TARTRATE 15 GM HFA.AER.AD INH SCH ×2 (13:44→20:13)
[2024-03-18 14:25] LABS: Potassium 3.7 mmol/L (3.5-5.1)
[2024-03-18] MEDS: COUGH DROP (SUGAR FREE) LOZ 24 LOZ/1 BOX BUCCAL PRN (20:00)
[2024-03-19 06:31] LABS: Hematocrit (blood only) 34.5 % (37.0-47.0); Hemoglobin 11.6 g/dl (12.0-16.0); Mean Corpuscular Hemoglobin 27.7 pg (25.0-34.0); Mean Corpuscular Hgb Conc 33.6 g/dL (32.0-36.0); Mean Corpuscular Volume 82.3 fL (80.0-100.0); Mean Platelet Volume 10.1 fL (9.4-12.4); Platelet Count 250 K/uL (130-400); RDW Standard Deviation 41.4 fL (36.4-46.3); Red Blood Count 4.19 M/uL (4.20-5.40)
--- NOTE | 2024-03-19 06:37 | Electrocardiogram Report ---
Test Reason : Blood Pressure : / mmHG Vent. Rate : 115 BPM Atrial Rate : 115 BPM P-R Int : 120 ms QRS Dur : 084 ms QT Int : 324 ms P-R-T Axes : 079 071 013 degrees QTc Int : 448 ms Sinus tachycardia Nonspecific ST and T wave abnormality Abnormal ECG When compared with ECG of 11-JUL-2018 16:24, Nonspecific ST and T wave abnormality is now Present Confirmed by Jarad Hay ([id number]) on 03/19/2024 6:36:56 AM Referred By: Confirmed By:Jarad Hay
[2024-03-19 06:42] LABS: BUN Creatinine Ratio 11.9 (10-20); Calcium 8.3 mg/dl (8.6-10.3); Creatinine Clr Calc Pharmacy 120.4 ml/min; Est GFR (African American) 142.5 ml/min; Potassium 3.7 mmol/L (3.5-5.1)
--- NOTE | 2024-03-19 15:36 | Discharge Summary ---
Date of Service March 19, 2024 Admission HPI Per Admitting Provider Patito Sheehna is a 28yo female with history of depression/anxiety presenting with pneumonia. Patient reports having some cough and congestion for several days last week- she has been taking Robitussin and OTC medications. She was seen at [facility] on 03/14/24 and was told that she has a bad cold. Her symptoms have been persistent. This evening she had a panic attack with racing heart and shaking which prompted her to come to the ER. Workup as below revealed LLL PNA. Patient febrile in the ER. She has had ongoing cough with phlegm as well as chills and vomiting. No chest pain, SOB. No additional complaints. Of note, patient is 2 months post- from an uncomplicated full-term . She has a two year old child as well as the new two month old baby. Her is in the and is currently on a 6 month deployment. Patient lives in [place] but is currently home living with family while her is deployed. In the ER she is febrile, tachycardic. Adequate oxygenation on room air ER Course: Tylenol Mg x 1gm NSS x 2L Zosyn 4.5gm KCl 10mEq Discharge Exam gen - coughing, but NAD, nontoxic neck - no JVD HENT - ears - TMs retracted b/l but normal landmarks mouth - MM dry heart - RRR, s1 s2, no murmur lungs - decreased BS both bases but much worse on left, minimal rales left base, no obvious wheeze abd - soft NT ND BS+; no HSM ext - no edema, pulses 2+ b/l Discharge Data Allergies Allergy/AdvReac Type Severity Reaction Status Date / Time No Known Drug Allergies Allergy Unknown Verified 03/18/24 02:11 Consultations 03/18/24 04:18 ED Decision to Admit Stat Ordered Studies 03/18/24 02:19 CT for pulmonary embolism PE [CT angio chest PE protocol] Stat Hospital Course (1) Left lower lobe pneumonia: community-acquired cont rocephin/doxycycline cont supportive care; cont pulm toilet; add mucinex/bronchodilators send sputum cx if able to produce sputum (2) Acute hypokalemia: 2nd to poor PO intake pre-admission & vomiting s/p replacement repeat level today improved/now normal (3) Hypomagnesemia: 2nd to poor po intake/vomiting replaced now resolved (4) Sepsis: 2nd #1 stable blood cx's neg to date (5) Depression with anxiety: cont celexa Plan DVT proph - lovenox daily Discharge Plan Discharge Items Reason For Visit: PNEUMONIA Follow-up/Referrals: PCP,NO [Primary Care Provider] - Medications and DC Order Prescriptions: No Action citalopram 20 mg tablet 20 mg PO BID Admission Data Admit Date/Time: 03/18/24 04:31 Attending Provider: Wagner Marmolejo Admit Provider: Liza Rouse Primary Care Provider: PCP,NO Other Providers: Liza Rouse Coding Diagnoses Left lower lobe pneumonia J18.9 Acute hypokalemia E87.6 Hypomagnesemia E83.42 Sepsis A41.9 Depression with anxiety F41.8
[2024-03-19] MEDS ORDERED: DOXYCYCLINE HYCLATE 100 MG CAP PO SCH (18:00)
== END 2024-03-19 16:47 | disposition home or self-care (01) ==
LOC: 3E 01:21 → ED 01:21 → SUATTDRO 04:31 → 3E 05:08